=== PATIENT | female | born 1975 ===

== ENCOUNTER 2021-01-15 21:48 | Emergency (ER) | payer SELFPAY ==
[~2021-01-15] VITALS: Ht 154.9 cm; Wt 91.8 kg
--- NOTE | 2021-01-15 22:04 | NUR ---
Pt is in NO distress, friend at bedside. Patricia NURSE ASSISTANT at bedside.
--- NOTE | 2021-01-15 22:18 | NUR ---
Juice given, waiting for dispo.
[2021-01-15 22:29] VITALS: BP 135/82
== END 2021-01-15 22:33 | disposition home or self-care (01) ==
LOC: ED 22:22
DX: F12.10 Cannabis abuse, uncomplicated (principal); F17.210 Nicotine dependence, cigarettes, uncomplicated
CPT/HCPCS: 99281; 99406